=== PATIENT | female | born 1970 | race African-American/Black ===

== ENCOUNTER 2022-12-30 19:14 | Emergency (ER) | payer OTHER ==
[~2022-12-30] VITALS: Ht 152.4 cm; Wt 136.1 kg
[2022-12-30] MEDS ORDERED: HYDROMORPHONE 1 MG/1 ML DISP.SYRIN IV ONE ×2 (20:30→23:45)
[2022-12-30] MEDS ORDERED: ALBUTEROL SULFATE 2.5 MG/3 ML NEBU NEB ONE (20:30)
[2022-12-30] MEDS ORDERED: IV NS 1000 ML 1,000 ML IV ONE (20:30)
[2022-12-30] MEDS ORDERED: ONDANSETRON 4 MG/2 ML VIAL IV ONE (20:30)
[2022-12-30] MEDS ORDERED: ALBUTEROL SULFATE 2.5 MG/3 ML NEBU ONE (20:38)
--- NOTE | 2022-12-30 21:07 | NUR ---
Patient ambulated to room #2-a with c/o COVID symptoms x 3 days. Patient alert and oriented x4, c/o generalized body pain. UInformed of plan of care at this time. #22g established in right hand, unable to collect blood at this time. will continue to monitor.
[2022-12-30] MEDS ORDERED: HYDROMORPHONE 1 MG/1 ML DISP.SYRIN ONE ×2 (21:12→23:45)
[2022-12-30] MEDS ORDERED: ONDANSETRON 4 MG/2 ML VIAL ONE (21:12)
[2022-12-30 21:33] LABS: HEMATOCRIT 34.6 % (31.2-41.9); MEAN CORPUSCULAR HEMOGLOBIN 28.9 uug (24.7-32.8); MEAN CORPUSCULAR VOLUME 90.7 fL (75.5-95.3); PLATELET COUNT (AUTO) 242 K/uL (179-408)
[2022-12-30 21:47] LABS: CREATININE 0.8 mg/dL (0.6-1.3); MAGNESIUM 1.8 mg/dL (1.8-2.4); POTASSIUM 3.9 mmol/L (3.5-5.1)
--- NOTE | 2022-12-30 22:15 | NUR ---
Ambulated to bathroom with IVF infusing as per order.
[2022-12-30] MEDS ORDERED: HYDR4TAB4 PO (23:43)
--- NOTE | 2022-12-30 23:51 | NUR ---
Medicated as per order for c/o pain. Patient aware will be discharged from hospital.
[2022-12-30] MEDS ORDERED: ALBU6.7H9 INH (23:55)
[2022-12-31 00:22] VITALS: BP 156/82
== END 2022-12-31 00:23 | disposition home or self-care (01) ==
LOC: ER 19:14
DX: B34.9 Viral infection, unspecified (principal); Z20.822 Contact with and (suspected) exposure to COVID-19; Z88.6 Allergy status to analgesic agent; J45.909 Unspecified asthma, uncomplicated; E66.01 Morbid (severe) obesity due to excess calories; Z68.43 Body mass index [BMI] 50.0-59.9, adult
CPT/HCPCS: 99284; 96374; 71045; 96361; 96375; 87426; 80048; 83735; 85025; 36415; 94640; 96376; J2405; J1170 ×2

== ENCOUNTER 2023-01-06 11:15 | Emergency (ER) | payer MEDICAID, OTHER ==
[~2023-01-06] VITALS: Ht 152.4 cm; Wt 136.1 kg
[~2023-01-06 11:15] MED LIST: ALBU6.7H9 INH; HYDR4TAB4 PO
--- NOTE | 2023-01-06 11:54 | NUR ---
[email or web address], medical screening exam in progress
[2023-01-06] MEDS ORDERED: KETOROLAC TROMETHAMINE 15 MG INJ ONE (12:13)
[2023-01-06] MEDS ORDERED: MORPHINE SULFATE 4 MG/1 ML DISP.SYRIN ONE (12:13)
[2023-01-06] MEDS ORDERED: KETOROLAC TROMETHAMINE 15 MG INJ IM ONE (12:15)
[2023-01-06] MEDS ORDERED: MORPHINE SULFATE 4 MG/1 ML DISP.SYRIN IM ONE (12:15)
--- NOTE | 2023-01-06 12:54 | NUR ---
Patient is seen eating and drinking her own snacks with good apetite. "I'm having the munchies." per patient's verbalization.
--- NOTE | 2023-01-06 13:14 | NUR ---
Patient walked to room 3 where her older sister is also a patient for generalized aches & knee pains (from room 4B) with slow steady gait, NAD.
--- NOTE | 2023-01-06 13:17 | NUR ---
Patient walked to ER nurses'-doctor area saying, "Can I also get my papers? My sister and I will be leaving soon." notified.
--- NOTE | 2023-01-06 13:25 | NUR ---
Patient discharged to home in stable condition with steady gait. Written and verbal after care instructions given. Patient verbalized understanding and compliance of instructions. Stressed follow up with primary doctor and your ortho doctor or return to ER for worsening s/s.
== END 2023-01-06 13:25 | disposition home or self-care (01) ==
LOC: ER 11:15
DX: G89.29 Other chronic pain (principal); M54.50 Low back pain, unspecified; E66.01 Morbid (severe) obesity due to excess calories; Z68.43 Body mass index [BMI] 50.0-59.9, adult; Z88.6 Allergy status to analgesic agent; Z88.8 Allergy status to other drugs, medicaments and biological substances; Z87.828 Personal history of other (healed) physical injury and trauma; I10 Essential (primary) hypertension
CPT/HCPCS: 99284; 96372 ×2; J1885; J2270; A4663

== ENCOUNTER 2023-04-19 00:37 | Emergency (ER) | payer MEDICAID, OTHER ==
[~2023-04-19] VITALS: Ht 152.4 cm; Wt 113.4 kg
--- NOTE | 2023-04-19 02:10 | NUR ---
PT AMB TO 5A WITH C/O SOTO 8/10 WITH NO N/V AND NO VISUAL DISTURBANCES.
--- NOTE | 2023-04-19 02:11 | NUR ---
AT BEDSIDE FOR EVAL.
[2023-04-19] MEDS ORDERED: IV NS 1000 ML 1,000 ML IV ONE (02:30)
[2023-04-19] MEDS ORDERED: KETOROLAC TROMETHAMINE 30 MG INJ IVP ONE (02:30)
[2023-04-19] MEDS ORDERED: diphenhydrAMINE 50 MG/1 ML VIAL IV ONE (02:30)
[2023-04-19] MEDS ORDERED: METOCLOPRAMIDE HCL 10 MG/2 ML VIAL IV ONE (02:30)
[2023-04-19] MEDS ORDERED: METOCLOPRAMIDE HCL 10 MG/2 ML VIAL ONE (03:39)
[2023-04-19] MEDS ORDERED: KETOROLAC TROMETHAMINE 30 MG INJ ONE (03:39)
[2023-04-19] MEDS ORDERED: diphenhydrAMINE 50 MG/1 ML VIAL ONE (03:39)
[2023-04-19] MEDS ORDERED: MORPHINE SULFATE 4 MG/1 ML DISP.SYRIN IV ONE (04:45)
[2023-04-19] MEDS ORDERED: HYDR-3980 PO (04:53)
--- NOTE | 2023-04-19 05:20 | NUR ---
PT A,A AND O X 4 WITH SOTO PAIN 4/10 WITH NO N/V AND NAD OBSERVED. Patient discharged to home in stable condition. Written and verbal after care instructions given. Patient verbalizes understanding of instructions. Stressed follow up or return to ER for worsening s/s. PT AMB OUT WITH UNSTEADY GAIT.
[2023-04-19 05:24] VITALS: BP 140/79
== END 2023-04-19 05:20 | disposition home or self-care (01) ==
LOC: ER 00:43
DX: G89.11 Acute pain due to trauma (principal); R51.9 Headache, unspecified; E66.01 Morbid (severe) obesity due to excess calories; J45.909 Unspecified asthma, uncomplicated; Z68.42 Body mass index [BMI] 45.0-49.9, adult; Z88.8 Allergy status to other drugs, medicaments and biological substances; Z79.899 Other long term (current) drug therapy
CPT/HCPCS: 99284; 96374; 96375; 96361; J1200; J1885; J2765; J7040; A4663

== ENCOUNTER 2023-06-12 23:35 | Emergency (ER) | payer OTHER ==
[~2023-06-12] VITALS: Ht 152.4 cm; Wt 99.8 kg
[~2023-06-12 23:35] MED LIST changes: +HYDR-3980 PO
[2023-06-12 23:50] VITALS: O2SAT 97
--- NOTE | 2023-06-13 00:10 | NUR ---
PT AMB TO RM 1A. REPORT GIVEN TO MARISSA.
[2023-06-13] MEDS ORDERED: MORPHINE SULFATE 4 MG/1 ML DISP.SYRIN IM ONE (00:45)
[2023-06-13] MEDS ORDERED: MORPHINE SULFATE 4 MG/1 ML DISP.SYRIN ONE (00:49)
[2023-06-13] MEDS ORDERED: MORPHINE SULFATE 2 MG/1 ML DISP.SYRIN ONE (00:50)
[2023-06-13 00:56] LABS: HEMATOCRIT 38.8 % (31.2-41.9); MEAN CORPUSCULAR HEMOGLOBIN 28.5 uug (24.7-32.8); MEAN CORPUSCULAR VOLUME 90.6 fL (75.5-95.3); PLATELET COUNT (AUTO) 276 K/uL (179-408)
[2023-06-13 01:05] LABS: CREATININE 1.3 mg/dL (0.6-1.3); POTASSIUM 3.8 mmol/L (3.5-5.1)
[2023-06-13 01:11] LABS: BILIRUBIN,TOTAL 0.1 mg/dL (0.2-1.0); TOTAL PROTEIN, SERUM 8.5 g/dL (6.4-8.2)
--- NOTE | 2023-06-13 01:35 | NUR ---
Pt. walk out of the room stating "I need to get staff out of my friend's car.
--- NOTE | 2023-06-13 01:52 | NUR ---
Patient left AMA after receiving one dose of morphine.
== END 2023-06-13 01:58 | disposition left against medical advice (07) ==
LOC: ER 23:40
DX: R10.9 Unspecified abdominal pain (principal); M25.562 Pain in left knee; M25.561 Pain in right knee; G43.909 Migraine, unspecified, not intractable, without status migrainosus; Z88.8 Allergy status to other drugs, medicaments and biological substances; Z79.899 Other long term (current) drug therapy; Z90.49 Acquired absence of other specified parts of digestive tract
CPT/HCPCS: 99285; 74150; 80053; 83690; 85025; 96372; J2270 ×2; A4663

== ENCOUNTER 2024-08-04 18:33 | Emergency (ER) | payer OTHER ==
[~2024-08-04] VITALS: Ht 152.4 cm; Wt 95.3 kg
[2024-08-04] MEDS ORDERED: PRED2.5T PO (19:00)
[2024-08-04] MEDS ORDERED: HYDR25TA4 PO (19:00)
[2024-08-04] MEDS ORDERED: VALS80TA2 PO (19:00)
[2024-08-04] MEDS ORDERED: QUET25TA PO (19:00)
[2024-08-04 21:12] LABS: BASOPHILS # (AUTO) 0.1 K/UL (0.0-0.2); EOSINOPHILS # (AUTO) 0.2 K/uL (0.0-0.7); EOSINOPHILS % (AUTO) 3.5 % (0.0-7.0); HEMOGLOBIN 10.9 g/dL (10.9-14.3); LYMPHOCYTES # (AUTO) 1.1 K/uL (0.8-4.8); LYMPHOCYTES % (AUTO) 21.5 % (20.5-51.5); MEAN CORPUSCULAR HGB CONC 31 g/dL (32.3-35.6); MEAN CORPUSCULAR VOLUME 86.7 fL (75.5-95.3); MONOCYTES # (AUTO) 0.6 K/uL (0.1-1.30); MONOCYTES % (AUTO) 11.8 % (0.0-11.0); NEUTROPHILS # (AUTO) 3.2 K/uL (1.8-8.9); NEUTROPHILS % (AUTO) 62.2 % (38.5-71.5); PLATELET COUNT (AUTO) 243 K/uL (179-408); RED BLOOD CELL COUNT(AUTO) 4.03 MIL/uL (3.63-4.92); WHITE BLOOD COUNT (AUTO) 5.2 K/uL (3.8-11.8)
[2024-08-04 21:16] LABS: DIFFERENTIAL COMMENT 1
[2024-08-04] MEDS: IV NORMAL SALINE 1000 ML BAG IV ONE (21:18)
[2024-08-04] MEDS: MORPHINE SULFATE 2 MG/1 ML DISP.SYRIN IV ONE (21:19)
[2024-08-04] MEDS: METOCLOPRAMIDE HCL 10 MG/2 ML VIAL IV ONE (21:19)
[2024-08-04 21:21] LABS: CALCIUM 9.1 mg/dL (8.5-10.1); CARBON DIOXIDE 25 mmol/L (21-32); CHLORIDE 102 mmol/L (98-107); CREATININE 1.6 mg/dL (0.6-1.3); GLUCOSE 102 mg/dL (74-106); POTASSIUM 3.8 mmol/L (3.5-5.1); SODIUM SERUM 138 mmol/L (136-145); UREA NITROGEN, BLOOD 21 mg/dL (7-18)
[2024-08-04] MEDS ORDERED: MORPHINE SULFATE 4 MG/1 ML DISP.SYRIN ONE (21:22)
[2024-08-04] MEDS ORDERED: METOCLOPRAMIDE HCL 10 MG/2 ML VIAL ONE (21:22)
[2024-08-04 21:29] LABS: ALANINE AMINOTRANSFERASE 17 U/L (14-59); ALBUMIN 2.9 g/dL (3.4-5.0); ALKALINE PHOSPHATASE 138 U/L (50-136); ASPARTATE AMINOTRANSFERASE 13 U/L (15-37); BILIRUBIN,DIRECT 0.1 mg/dL (0.0-0.2); BILIRUBIN,TOTAL 0.5 mg/dL (0.2-1.0); LIPASE 57 U/L (16-77); TOTAL PROTEIN, SERUM 7.4 g/dL (6.4-8.2)
[2024-08-04 21:53] LABS: *BILIRUBIN,URIN 1+ (NEGATIVE); *BLOOD, URINE NEGATIVE (NEGATIVE); *CLARITY,URINE CLEAR (CLEAR); *COLOR,URINE YELLOW (YELLOW); *KETONES,URINE NEGATIVE (NEGATIVE); *PROTEIN,URINE TRACE (NEGATIVE); LEUKOCYTE ESTERASE ,URINE NEGATIVE (NEGATIVE); NITRITE, URINE NEGATIVE (NEGATIVE); PH,URINE 5.5 (5.0-8.0); UGLUCOSE NEGATIVE (NEGATIVE)
[2024-08-04 22:02] LABS: BACTERIA,URINE NONE SEEN /HPF (NONE SEEN); RBC,URINE NONE SEEN /HPF (0-3); SQUAMOUS EPITHELIAL CELL,UR FEW /HPF (NONE SEEN); WBC,URINE 0-3 /HPF (0-3)
[2024-08-04] MEDS ORDERED: METO-295 PO (23:45)
[2024-08-05 00:29] VITALS: BP 102/66; TEMP 98.2; O2SAT 98
== END 2024-08-05 00:31 | disposition home or self-care (01) ==
LOC: ER 18:47
DX: R11.2 Nausea with vomiting, unspecified (principal); G43.909 Migraine, unspecified, not intractable, without status migrainosus; J45.909 Unspecified asthma, uncomplicated; E66.01 Morbid (severe) obesity due to excess calories; Z68.41 Body mass index [BMI] 40.0-44.9, adult; Z98.890 Other specified postprocedural states; Z79.891 Long term (current) use of opiate analgesic; Z79.52 Long term (current) use of systemic steroids; Z79.1 Long term (current) use of non-steroidal anti-inflammatories (NSAID); Z79.899 Other long term (current) drug therapy; Z60.2 Problems related to living alone; Z88.1 Allergy status to other antibiotic agents
CPT/HCPCS: 99285; 74176; 96374; 71045; 96361; 96375; 80076; 80048; 81001; 83690; 85025; 85730; 84484; 36415; 93005; J2765; J2270; J7040; A4606; A4663; C1758